=== PATIENT | male | born 1960 | race African-American/Black ===

== ENCOUNTER 2016-09-29 14:29 | Emergency (ER) | payer MEDICAID ==
[~2016-09-29] VITALS: Ht 188 cm; Wt 83.0 kg
[~2016-09-29 14:29] MED LIST: ASPI-1159 PO; EZET10TA PO; PRAV10TA35 PO
[2016-09-29] MEDS ORDERED: SODIUM CHLORIDE 0.9% 1,000 ML IV ONE (17:24)
[2016-09-29] MEDS ORDERED: KETOROLAC 30MG/ML VIAL IV ONE (17:30)
[2016-09-29 17:52] LABS: BASOPHILS % 0.4 % (0.0-2.0); EOSINOPHILS % 3.5 % (0.0-5.0); HEMATOCRIT. 38.6 % (42.0-52.0); HEMOGLOBIN. 12.5 g/dL (14.0-18.0); MEAN CORPUSCULAR HEMOGLOBIN 25.5 pg (28.0-32.0); MEAN CORPUSCULAR VOLUME 78.9 fL (80.0-94.0); MEAN PLATELET VOLUME 7.9 fl (7.4-10.4); MONOCYTES % 5.6 % (2.0-8.0); NEUTROPHILS % 55.5 % (40.0-76.0); PLATELET 169 x1000/uL (130-400)
[2016-09-29 17:57] LABS: PARTIAL THROMBOPLASTIN TIME 27.5 sec (24.0-34.0); PROTHROMBIN TIME 10.4 sec
[2016-09-29 18:00] VITALS: BP 138/70
[2016-09-29 18:02] LABS: CARBON DIOXIDE 27 mEq/L (21-32); CHLORIDE 108 mEq/L (98-107)
[2016-09-29 18:06] LABS: TROPONIN I < 0.02 ng/mL (0.00-0.04)
[2016-09-29 18:54] LABS: CLARITY URINE CLEAR (CLEAR); COLOR URINE YELLOW (YELLOW); GLUCOSE URINE NEGATIVE (NEGATIVE); KETONES URINE NEGATIVE (NEGATIVE); LEUKOCYTE ESTERASE URINE NEGATIVE (NEGATIVE); NITRITE URINE NEGATIVE (NEGATIVE); OCCULT BLOOD URINE NEGATIVE (NEGATIVE); PROTEIN URINE NEGATIVE (NEGATIVE); SPECIFIC GRAVITY URINE 1.016 (1.005-1.030); UROBILINOGEN URINE 0.2 E.U./dL (0.2-1.0)
== END 2016-09-29 19:40 | disposition home or self-care (01) ==
LOC: ER 17:15
DX: R10.11 Right upper quadrant pain (principal); N28.1 Cyst of kidney, acquired; I10 Essential (primary) hypertension; E11.9 Type 2 diabetes mellitus without complications; E78.00 Pure hypercholesterolemia, unspecified; I25.10 Atherosclerotic heart disease of native coronary artery without angina pectoris; I25.2 Old myocardial infarction; Z79.82 Long term (current) use of aspirin
CPT/HCPCS: 36415; 76700; 80053; 81003; 83690; 84484; 85025; 85610; 85730; 87086; 93005; 96361; 96374; 99285; J1885; J7030; Z7610

== ENCOUNTER 2016-10-29 15:41 | Emergency (ER) | payer MEDICAID ==
[~2016-10-29] VITALS: Ht 188 cm; Wt 87.0 kg
[2016-10-29] MEDS ORDERED: MORPHINE SULFATE 10 MG/ML CPJ IM ONE (17:00)
[2016-10-29] MEDS ORDERED: KETOROLAC 30MG/ML VIAL IM ONE (17:00)
[2016-10-29] MEDS ORDERED: DIAZEPAM 5 MG TABLET PO ONE (17:00)
[2016-10-29 17:12] LABS: BASOPHILS % 0.6 % (0.0-2.0); EOSINOPHILS % 3.3 % (0.0-5.0); HEMOGLOBIN. 12.6 g/dL (14.0-18.0); LYMPHOCYTES % 36.3 % (20.0-50.0); MEAN CORPUSCULAR HEMOGLOBIN 25.6 pg (28.0-32.0); MEAN CORPUSCULAR VOLUME 77.4 fL (80.0-94.0); MEAN PLATELET VOLUME 8.1 fl (7.4-10.4); NEUTROPHILS % 53.8 % (40.0-76.0); PLATELET 147 x1000/uL (130-400); RED BLOOD CELL COUNT 4.91 mill/uL (4.7-6.1); RED CELL DISTRIBUTION WIDTH 16.1 % (11.6-14.6)
[2016-10-29 17:15] LABS: CHLORIDE 105 mEq/L (98-107)
[2016-10-29 17:19] LABS: CARBON DIOXIDE 30 mEq/L (21-32)
[2016-10-29 17:26] LABS: TROPONIN I < 0.02 ng/mL (0.00-0.04)
[2016-10-29 19:45] VITALS: BP 140/78
== END 2016-10-29 20:50 | disposition home or self-care (01) ==
LOC: ER 18:52
DX: R10.9 Unspecified abdominal pain (principal); S39.011A Strain of muscle, fascia and tendon of abdomen, initial encounter; X58.XXXA Exposure to other specified factors, initial encounter; Y93.89 Activity, other specified; Y92.89 Other specified places as the place of occurrence of the external cause; M54.16 Radiculopathy, lumbar region; I25.2 Old myocardial infarction; I25.10 Atherosclerotic heart disease of native coronary artery without angina pectoris; E78.00 Pure hypercholesterolemia, unspecified; E11.9 Type 2 diabetes mellitus without complications; I10 Essential (primary) hypertension; Z98.62 Peripheral vascular angioplasty status; Z79.82 Long term (current) use of aspirin
CPT/HCPCS: 36415; 80053; 83690; 83880; 84484; 85025; 96372; 99284; J1885; J2270; Z7610

== ENCOUNTER 2016-12-11 11:01 | Emergency (ER) | payer MEDICAID ==
[~2016-12-11] VITALS: Ht 188 cm; Wt 84.0 kg
[~2016-12-11 11:01] MED LIST changes: -EZET10TA PO; +ZET10 PO
[2016-12-11] MEDS ORDERED: SODIUM CHLORIDE 0.9% 1,000 ML IV ONE (14:38)
[2016-12-11 14:55] LABS: BASOPHILS % 0.6 % (0.0-2.0); EOSINOPHILS % 2.4 % (0.0-5.0); HEMATOCRIT. 42.3 % (42.0-52.0); HEMOGLOBIN. 13.7 g/dL (14.0-18.0); LYMPHOCYTES % 32.6 % (20.0-50.0); MEAN CORPUSCULAR HEMOGLOBIN 25.4 pg (28.0-32.0); MEAN CORPUSCULAR VOLUME 78.4 fL (80.0-94.0); MONOCYTES % 4.8 % (2.0-8.0); NEUTROPHILS % 59.6 % (40.0-76.0); PLATELET 164 x1000/uL (130-400)
[2016-12-11 15:00] LABS: PROTHROMBIN TIME 10.6 sec (9.4-11.6)
[2016-12-11 15:04] LABS: CHLORIDE 106 mEq/L (98-107)
[2016-12-11 15:08] LABS: CARBON DIOXIDE 28 mEq/L (21-32); ETHANOL BLOOD < 10 mg/dL
[2016-12-11 15:10] LABS: CREATINE KINASE 171 IU/L (39-308)
[2016-12-11 15:12] LABS: TROPONIN I < 0.02 ng/mL (0.00-0.04)
[2016-12-11] MEDS ORDERED: ONDANSETRON HCL 4MG/2ML VIAL ONE (15:30)
[2016-12-11] MEDS ORDERED: ONDANSETRON HCL 4MG/2ML VIAL IV ONE ×2 (15:30)
[2016-12-11 17:54] VITALS: BP 165/61
== END 2016-12-11 17:55 | disposition home or self-care (01) ==
LOC: ER 14:09
DX: E86.0 Dehydration (principal); G47.00 Insomnia, unspecified; I10 Essential (primary) hypertension; E78.00 Pure hypercholesterolemia, unspecified; Z79.82 Long term (current) use of aspirin
CPT/HCPCS: 36415; 70450; 71010; 80053; 82550; 83880; 84443; 84484; 85025; 85610; 93005; 96361; 96374; 99285; G0482; J2405; J7030; Z7610

== ENCOUNTER 2016-12-25 11:35 | Emergency (ER) | payer MEDICAID ==
[~2016-12-25] VITALS: Ht 188 cm; Wt 82.9 kg
[2016-12-25 11:40] VITALS: BP 155/83
== END 2016-12-25 13:32 | disposition left against medical advice (07) ==
LOC: ER 12:28
DX: R10.9 Unspecified abdominal pain (principal); Z53.21 Procedure and treatment not carried out due to patient leaving prior to being seen by health care provider

== ENCOUNTER 2017-05-07 19:19 | Emergency (ER) | payer MEDICAID ==
[~2017-05-07] VITALS: Ht 188 cm; Wt 86.0 kg
[2017-05-08 06:07] LABS: CLARITY URINE CLEAR (CLEAR); COLOR URINE YELLOW (YELLOW); KETONES URINE NEGATIVE (NEGATIVE); LEUKOCYTE ESTERASE URINE NEGATIVE (NEGATIVE); NITRITE URINE NEGATIVE (NEGATIVE); OCCULT BLOOD URINE NEGATIVE (NEGATIVE); PH URINE 5.5 (4.5-8.0); PROTEIN URINE NEGATIVE (NEGATIVE); SPECIFIC GRAVITY URINE 1.018 (1.005-1.030); UROBILINOGEN URINE 0.2 E.U./dL (0.2-1.0)
[2017-05-08] MEDS ORDERED: KETOROLAC 60MG/2ML VIAL IM ONE (06:30)
[2017-05-08 06:45] VITALS: BP 154/85
== END 2017-05-08 07:09 | disposition home or self-care (01) ==
LOC: ER 22:25
DX: S39.012A Strain of muscle, fascia and tendon of lower back, initial encounter (principal); E78.00 Pure hypercholesterolemia, unspecified; I10 Essential (primary) hypertension; Z79.82 Long term (current) use of aspirin; W19.XXXA Unspecified fall, initial encounter; Y93.89 Activity, other specified; Y92.89 Other specified places as the place of occurrence of the external cause; Y99.8 Other external cause status
CPT/HCPCS: 81003; 96372; 99283; J1885; Z7610

== ENCOUNTER 2017-10-22 13:13 | Inpatient (IN) | payer BC, MEDICAID ==
[~2017-10-22] VITALS: Ht 188 cm; Wt 82.1 kg
[2017-10-22] MEDS ORDERED: ACETAMINOPHEN 325MG TABLET PO STA (15:17)
[2017-10-22] MEDS ORDERED: MECLIZINE 25MG TABLET PO ONE (15:30)
[2017-10-22 16:06] LABS: BASOPHILS % 0.7 % (0.0-2.0); EOSINOPHILS % 3.9 % (0.0-5.0); HEMATOCRIT. 40.2 % (42.0-52.0); HEMOGLOBIN. 13.1 g/dL (14.0-18.0); LYMPHOCYTES % 32.2 % (20.0-50.0); MEAN CORPUSCULAR HEMOGLOBIN 25.4 pg (28.0-32.0); MEAN CORPUSCULAR VOLUME 77.8 fL (80.0-94.0); MONOCYTES % 5.4 % (2.0-8.0); NEUTROPHILS % 57.8 % (40.0-76.0); PLATELET 168 x1000/uL (130-400); RED BLOOD CELL COUNT 5.16 mill/uL (4.7-6.1); RED CELL DISTRIBUTION WIDTH 15.8 % (11.6-14.6)
[2017-10-22 16:11] LABS: CHLORIDE 107 mEq/L (98-107)
[2017-10-22 16:28] LABS: CLARITY URINE CLEAR (CLEAR); COLOR URINE YELLOW (YELLOW); KETONES URINE NEGATIVE (NEGATIVE); LEUKOCYTE ESTERASE URINE NEGATIVE (NEGATIVE); NITRITE URINE NEGATIVE (NEGATIVE); OCCULT BLOOD URINE NEGATIVE (NEGATIVE); PROTEIN URINE NEGATIVE (NEGATIVE); SPECIFIC GRAVITY URINE 1.008 (1.005-1.030); UROBILINOGEN URINE 0.2 E.U./dL (0.2-1.0)
[2017-10-22] MEDS ORDERED: ZOLPIDEM TARTRATE 5MG TABLET PO PRN (19:00)
[2017-10-22] MEDS ORDERED: ATORVASTATIN CALCIUM 20MG TABLET PO SCH (21:00)
[2017-10-22] MEDS ORDERED: HYDROCODONE/ACETAMINOPHEN 5/325MG TABLET PO PRN (21:30)
[2017-10-22] MEDS ORDERED: ATENOLOL 25MG TABLET PO NR (23:00)
[2017-10-22 23:11] VITALS: BP 144/82
[2017-10-22] MEDS ORDERED: HYDROCODONE/ACETAMINOPHEN 5/325MG TABLET PO NR (23:30)
[2017-10-22] MEDS ORDERED: ENOXAPARIN 40MG/0.4ML SYR SUBCUT NR (23:30)
[2017-10-22] MEDS: ASPIRIN 81MG EC TABLET PO SCH (23:30)
[2017-10-22] MEDS: LORATADINE 10MG TABLET PO SCH (23:44)
[2017-10-22] MEDS: SODIUM CHL 0.45% + KCL 20MEQ/L 1,000 ML IV SCH (23:46)
[2017-10-23] VITALS (7 sets, daily range): BP systolic 121–144; BP diastolic 71–85
[2017-10-23] MEDS ORDERED: EZETIMIBE 10MG TABLET PO SCH (09:00)
[2017-10-23] MEDS ORDERED: ATENOLOL 25MG TABLET PO SCH (09:00)
[2017-10-23] MEDS ORDERED: FLUTICASONE PROPIONATE 50MCG/SPRAY BOTTLE BOTHNSTRLS SCH (09:00)
[2017-10-23] MEDS: ASPIRIN 81MG EC TABLET PO SCH (09:16)
[2017-10-23] MEDS: LORATADINE 10MG TABLET PO SCH (09:16)
[2017-10-23] MEDS ORDERED: IOHEXOL-350 100 ML BOTTLE ONE ×2 (11:45→11:51)
[2017-10-23] MEDS: SODIUM CHL 0.45% + KCL 20MEQ/L 1,000 ML IV SCH (13:21)
[2017-10-23] MEDS ORDERED: ATORVASTATIN CALCIUM 10MG TABLET PO SCH (21:00)
[2017-10-23] MEDS ORDERED: ENOXAPARIN 40MG/0.4ML SYR SUBCUT SCH (23:00)
== END 2017-10-23 17:06 | disposition home or self-care (01) | DRG 312 ==
LOC: ER 13:13 → 7WST 17:09 → ENRESERV 19:14 → EDBEDREQ 22:17
PROVIDERS: ADMIT Internal Medicine Geriatric Medicine; ATTEND Internal Medicine Geriatric Medicine
DX: R55 Syncope and collapse (principal); E11.51 Type 2 diabetes mellitus with diabetic peripheral angiopathy without gangrene; E78.00 Pure hypercholesterolemia, unspecified; E78.5 Hyperlipidemia, unspecified; F32.9 Major depressive disorder, single episode, unspecified; F41.9 Anxiety disorder, unspecified; G89.29 Other chronic pain; R10.9 Unspecified abdominal pain; I11.9 Hypertensive heart disease without heart failure; R42 Dizziness and giddiness; R00.1 Bradycardia, unspecified; R51 Headache; Z79.82 Long term (current) use of aspirin; Z79.899 Other long term (current) drug therapy; Z80.3 Family history of malignant neoplasm of breast; Z82.3 Family history of stroke; Z82.49 Family history of ischemic heart disease and other diseases of the circulatory system; Z87.891 Personal history of nicotine dependence; I25.2 Old myocardial infarction
CPT/HCPCS: 36415; 70496; 70498; 70551; 71045; 80053; 81003; 82378; 82962; 83690; 84484; 85025; 86301; 93005; 93880; 99285; J1650; J3480; J8597; Q9967